=== PATIENT | female | born 1945 | race Hispanic/Latino ===

== ENCOUNTER → 2018-11-11 | Day surgery (SDC) | payer MEDICARE ==
[2018-11-09 11:30] LABS: BASOPHILS % 0.4 % (0.0-1.0); EOSINOPHILS # (AUTO) 0.4 (0.0-0.4); EOSINOPHILS % 4.5 % (0.0-6.0); HEMOGLOBIN 13.9 g/dL (12.0-16.0); LYMPHOCYTES # (AUTO) 1.7 (1.0-3.2); LYMPHOCYTES % 21.2 % (18.0-39.1); MEAN CORPUSCULAR HEMOGLOBIN 28.1 pg (28-32); MEAN CORPUSCULAR HGB CONC 33.1 g/dL (31-35); MEAN CORPUSCULAR VOLUME 84.8 fL (81-99); MONOCYTES # (AUTO) 0.5 (0.2-0.8); MONOCYTES % 6.9 % (4.4-11.3); NEUTROPHILS # (AUTO) 5.2 (2.1-6.9); NEUTROPHILS % 66.5 % (38.7-80.0); RED BLOOD COUNT 4.95 x10e6/uL (3.6-5.1); RED CELL DISTRIBUTION WIDTH 13.5 % (11.7-14.4)
[2018-11-09 11:32] LABS: PLATELET COUNT 134 x10e3/uL (140-360)
[2018-11-09 11:39] LABS: INR 0.87; PROTHROMBIN TIME 12.3 seconds (11.9-14.5)
[2018-11-09 11:49] LABS: ALANINE AMINOTRANSFERASE 12 IU/L (0-55); ALBUMIN 3.6 g/dL (3.5-5.0); ALBUMIN/GLOBULIN RATIO 0.9 (0.8-2.0); ALKALINE PHOSPHATASE 104 IU/L (40-150); ANION GAP 12.9 mmol/L (8-16); BLOOD UREA NITROGEN 14 mg/dL (7-26); BUN/CREATININE RATIO 17 (6-25); CALCIUM 10.3 mg/dL (8.4-10.2); CARBON DIOXIDE 27 mmol/L (22-29); CHLORIDE 104 mmol/L (98-107); CREATININE, SERUM 0.82 mg/dL (0.57-1.11); EST GLOMERULAR FILTRATION RATE > 60 ML/MIN (60-); GLUCOSE 127 mg/dL (74-118); POTASSIUM 4.9 mmol/L (3.5-5.1); SODIUM 139 mmol/L (136-145)
[~2018-11-11] VITALS: Ht 154.9 cm; Wt 86.2 kg
[2018-11-11] VITALS (12 sets, daily range): BP systolic 122–167; BP diastolic 60–88
[~2018-11-11] MED LIST: ASPIRIN81 MG PO; FENTANYL CITRATE/PF 100MCG/2 ML INJ ONE; HEPARIN SOD (PORCINE) 1000 UNIT/ML 30ML ONE; HEPARIN SOD/SOD CHLORIDE 2,000 ML ONE; IOPAMIDOL 370 MG/ML 200 ML INFUS..BTL INJ ONE; LIDOCAINE HCL 2% LOCAL 20 ML VIAL ONE; LISINOPRIL-HCT1 EACH PO; METFORMIN HCL500 MG PO; MIDAZOLAM HCL 2 MG/2 ML VIAL ONE; NAPROXEN250 MG PO; NITROGLYCERIN/D5W 200 MCG/ML 250 ML ONE; SODIUM CHLORIDE 0.9% 1000ML 1,000 ML ONE; ULTRACET TABLE1 EACH PO; VERAPAMIL HCL 2.5 MG/ML 2 ML VIAL ONE
--- OUTSIDE RECORDS SUMMARY | 2018-11-11 07:07 | XMS REPORT ---
Author Author [facility] Address Unknown Phone Unavailable Care Team Providers Care Asthma Educator Name Role Phone Unavailable Unavailable Problems This patient has no known problems. Allergies, Adverse Reactions, Alerts This patient has no known allergies or adverse reactions. Medications This patient has no known medications. Results Test Description Test Time Test Comments Text Results Atomic Results Result Comments SCR MAMM BILATERAL PRITESH CAD DIGITAL 2018-05-28 09:48:41 - SCR MAMM BILATERAL PRITESH CAD DIGITALBILATERAL DIGITAL SCREENING MAMMOGRAM 3D/2D WITH CAD: 05/28/2018CLINICAL: Asymptomatic. Digital breast tomosynthesis was performed in addition to routine CC and MLO views. Current mammographic images were evaluated by either a [place] M-Vu or a [employer] ImageChecker CAD (computer aided detection system). Comparison is made to exams dated 10/08/2016 mammogram, 10/04 mammogram, and 07/21/2014 mammogram - [facility]. There are scattered fibroglandular tissues in both breasts. There are benign appearing calcifications in both breasts which appear mammographically stable since 2016. No new suspicious mass, architectural distortion, malignant type calcification, or lymph node abnormality detected. IMPRESSION: BENIGNThere is no mammographic evidence of malignancy. Resume annual screening mammography in one year. Miley Brink M.D. ar/:05/28/2018 09:48:41 copy to: [facility], [facility], ph: [phone], fax: [phone] Technologist: Valarie HOLM, [facility] sent: BIRADS 1-2 Normal Mammogram BI-RADS: 2 Benign
--- NOTE | 2018-11-11 08:51 | NUR ---
0851am Received pt in Rm #9 Identiferx2 Handoff [facility] no Fix Dr Staples Rt TR band approach. No oozing or hematoma. No gross issues pain pallor pressure or dysrhythmia. Back to baseline orientation. Respiration shallow and regular. 98% RA Abdomen soft and nontender. Denies to defecate or urinate. Bilateral PPx4 PD/PT. Left iv infusing at kvo. No s/s infiltration. Reviewed dc planning with has copies of dc plans. 9:30am 12cc TR band -2cc had to return due to oozing, will reattempt at 10:00am 12cc in balloon volume No hematoma No gross issues pain pallor pressure or dysrhythmia.Normal neuro vascular function. ds/rn
--- NOTE | 2018-11-11 10:15 | NUR ---
1015am resume air removal to 12cc balloon, -2cc positive 10cc Normal neuro vascular function intact.No gross issues pain pallor pressure or dysrhythmia. remain at bedside ds/rn
--- NOTE | 2018-11-11 10:15 | NUR ---
1015a Resume air removal TR band No hematoma or oozing -2cc Positive 10cc.Normal Neurovascular Function 1030a -2cc positive 8cc .Normal Neurovascular function 1045a -2cc Positive 6cc, Normal Neuro vascular function 1100am completed air removal Sterile 2x2 with Tegaderm.with Coban and Wrist splint No gross issues pain pallor pressure or dysthrhmia. Normal neuro vascular function. Assist to bathroom voided , intaking food and fluids well, Denies c/o CP or SOB ,iv removed with copies POC .2x2 dressing to left iv site, no s/s infiltration. Escorted to car with w/c and RN escort aware of importance of f/o, is driving. ds/rn
--- NOTE | 2018-11-11 17:49 | Operative Report ---
DATE OF PROCEDURE: 11/11/2018 SURGEON: Miguel Staples DO PROCEDURES PERFORMED: 1. Conscious sedation, 26 minutes. 2. Selective coronary angiography x2. 3. Left heart catheterization. PREPROCEDURE DIAGNOSIS: Abnormal stress test. POSTPROCEDURE DIAGNOSIS: Abnormal stress test. ESTIMATED BLOOD LOSS: Less than 20 mL. SPECIMENS REMOVED: None. PROCEDURE IN DETAIL: After informed consent was obtained, the patient was brought to the cardiac catheterization laboratory in the fasting, nonsedated state. Her right wrist was prepped and draped in the usual sterile fashion. A 2% lidocaine was infiltrated over the right wrist for local anesthesia. Using a micropuncture needle, the right radial artery was accessed via modified Seldinger technique and a 5/6 slender sheath was placed. Next, diagnostic coronary angiography was performed using a TIG catheter. Diagnostic imaging revealed no significant coronary artery disease with patent vessels. Left heart catheterization showed end-diastolic pressure of 15 mmHg. The patient tolerated procedure well with no immediate complications and transported back to her room in stable condition. PROCEDURE FINDINGS: 1. Left main coronary artery is patent. 2. Left anterior descending coronary artery is patent with mild luminal irregularities. 3. Left circumflex coronary artery provides two obtuse marginal vessels with no significant disease. 4. Right coronary artery is a dominant vessel and provides the posterior descending coronary artery. Miguel Staples DO BM/MODL /[id number]
== END | disposition home or self-care (01) ==
LOC: CATH LAB 07:04
PROVIDERS: ATTEND Internal Medicine Cardiovascular Disease
DX: R07.2 Precordial pain (principal); R94.39 Abnormal result of other cardiovascular function study; Z01.812 Encounter for preprocedural laboratory examination; I10 Essential (primary) hypertension; E11.9 Type 2 diabetes mellitus without complications; Z79.84 Long term (current) use of oral hypoglycemic drugs; Z79.82 Long term (current) use of aspirin
CPT/HCPCS: 36415; 80053; 85025; 85610; 93458; C1887; J1644; J2001; J2250; J7030; Q9967; J3010

== ENCOUNTER 2018-11-30 10:41 | Inpatient (IN) | payer MEDICARE, OTHER ==
[~2018-11-30] VITALS: Ht 154.9 cm; Wt 86.6 kg
[~2018-11-30 10:41] MED LIST changes: -FENTANYL CITRATE/PF 100MCG/2 ML INJ ONE; -HEPARIN SOD (PORCINE) 1000 UNIT/ML 30ML ONE; -HEPARIN SOD/SOD CHLORIDE 2,000 ML ONE; -IOPAMIDOL 370 MG/ML 200 ML INFUS..BTL INJ ONE; -LIDOCAINE HCL 2% LOCAL 20 ML VIAL ONE; -MIDAZOLAM HCL 2 MG/2 ML VIAL ONE; -NITROGLYCERIN/D5W 200 MCG/ML 250 ML ONE; -SODIUM CHLORIDE 0.9% 1000ML 1,000 ML ONE; -VERAPAMIL HCL 2.5 MG/ML 2 ML VIAL ONE
[2018-11-30] MEDS ORDERED: SODIUM CHLORIDE 0.9% 500ML 500 ML IV ONE (11:00)
[2018-11-30] MEDS ORDERED: PANTOPRAZOLE 40 MG 10ML VIAL IV ONE (11:30)
[2018-11-30] MEDS ORDERED: ONDANSETRON HCL INJ 2MG/ML 2ML 2 MG/ML VIAL IV ONE (11:30)
[2018-11-30 11:43] LABS: BASOPHILS % 0.3 % (0.0-1.0); EOSINOPHILS # (AUTO) 0.1 (0.0-0.4); EOSINOPHILS % 0.9 % (0.0-6.0); HEMATOCRIT 44.5 % (34.2-44.1); HEMOGLOBIN 15.1 g/dL (12.0-16.0); LYMPHOCYTES # (AUTO) 0.9 (1.0-3.2); LYMPHOCYTES % 10.3 % (18.0-39.1); MEAN CORPUSCULAR HEMOGLOBIN 28.4 pg (28-32); MEAN CORPUSCULAR HGB CONC 33.9 g/dL (31-35); MEAN CORPUSCULAR VOLUME 83.8 fL (81-99); MONOCYTES # (AUTO) 0.5 (0.2-0.8); MONOCYTES % 5.5 % (4.4-11.3); NEUTROPHILS # (AUTO) 7.3 (2.1-6.9); NEUTROPHILS % 82.7 % (38.7-80.0); PLATELET COUNT 128 x10e3/uL (140-360); RED BLOOD COUNT 5.31 x10e6/uL (3.6-5.1); RED CELL DISTRIBUTION WIDTH 13.5 % (11.7-14.4)
[2018-11-30 11:55] LABS: INR 0.91; PROTHROMBIN TIME 12.7 seconds (11.9-14.5)
[2018-11-30 11:56] LABS: PARTIAL THROMBOPLASTIN TIME 29.2 seconds (23.8-35.5)
[2018-11-30 12:04] LABS: ALANINE AMINOTRANSFERASE 12 IU/L (0-55); ALBUMIN 3.7 g/dL (3.5-5.0); ALBUMIN/GLOBULIN RATIO 0.9 (0.8-2.0); ALKALINE PHOSPHATASE 100 IU/L (40-150); AMYLASE 52 U/L (25-125); ANION GAP 15.1 mmol/L (8-16); BLOOD UREA NITROGEN 15 mg/dL (7-26); BUN/CREATININE RATIO 17 (6-25); CALCIUM 9.9 mg/dL (8.4-10.2); CARBON DIOXIDE 24 mmol/L (22-29); CHLORIDE 105 mmol/L (98-107); CREATINE KINASE 22 IU/L (29-168); CREATININE, SERUM 0.86 mg/dL (0.57-1.11); EST GLOMERULAR FILTRATION RATE > 60 ML/MIN (60-); GLUCOSE 153 mg/dL (74-118); LIPASE 23 U/L (8-78); MAGNESIUM 1.9 MG/DL (1.3-2.1); POTASSIUM 4.1 mmol/L (3.5-5.1); SODIUM 140 mmol/L (136-145)
--- NOTE | 2018-11-30 12:27 | Diagnostic Imaging Report ---
EXAMINATION: ABDOMEN ACUTE SERIES W/PA CXR INDICATION: Abdominal pain COMPARISON: None FINDINGS: TUBES and LINES: EKG leads overlie the chest. LUNGS: The lung volumes are normal. No focal consolidation or pulmonary edema. PLEURA: No pleural effusion or pneumothorax. HEART AND MEDIASTINUM: The cardiomediastinal silhouette is normal in size and contour. Linear calcification along the right heart border may be pleural or pericardial in origin. BONES AND SOFT TISSUES: No acute fracture or dislocation. ABDOMEN: Nonobstructive bowel gas pattern. No free air. A 9 mm vague calcific density overlying the left kidney may represent renal calculus versus ingested material. No acute fracture or dislocation. IMPRESSION: Nonobstructive bowel gas pattern. No free air. 9 mm calcific density overlying the left kidney may represent renal calculus or ingested material. Clear lungs. Signed by: Deepa Juarez MD on 11/30/2018 12:24 PM
--- NOTE | 2018-11-30 13:00 | NUR ---
REC'D REPORT IN WALKING ROUNDS WITH MEGHA CATALAN FOR CONTINUITY OF CARE
[2018-11-30] MEDS ORDERED: IOPAMIDOL 370 MG/ML 200 ML INFUS..BTL INJ ONE (14:41)
[2018-11-30] MEDS ORDERED: SODIUM CHLORIDE 0.9% 50ML 50 ML ONE (14:41)
--- NOTE | 2018-11-30 14:41 | Diagnostic Imaging Report ---
EXAM: CT Abdomen and Pelvis WITH intravenous contrast INDICATION: Abdominal pain COMPARISON: None. TECHNIQUE: Abdomen and pelvis were scanned utilizing a multidetector helical scanner from the lung base to the pubic symphysis after administration of IV contrast. Coronal and sagittal reformations were obtained. Routine protocol was performed. Scan was performed when during portal venous phase. IV CONTRAST: 100mL of Isovue 370 ORAL CONTRAST: Water COMPLICATIONS: None RADIATION DOSE: Total DLP: 476.7 mGy*cm Dose modulation, iterative reconstruction, and/or weight based adjustment of the mA/kV was utilized to reduce the radiation dose to as low as reasonably achievable. FINDINGS: LOWER THORAX: Mild diffuse groundglass opacities and peripheral interlobular septal thickening compatible with mild interstitial pulmonary edema. Pericardial calcifications and atherosclerotic calcifications of the coronary arteries. HEPATOBILIARY: Diffusely decreased hepatic parenchymal attenuation. No focal hepatic lesions. No biliary ductal dilatation. Status post cholecystectomy SPLEEN: No splenomegaly. PANCREAS: Scattered fatty atrophy. No focal mass. No ductal dilatation. ADRENALS: Right adrenal thickening without discrete mass lesion. No left adrenal nodule. KIDNEYS/URETERS: Severe right hydronephrosis with loss of renal parenchyma and cortical thinning, likely indicating chronicity. Minimal left hydronephrosis. No renal calculi or solid mass lesions. 2.4 cm left renal mid pole posterior cyst. PELVIC ORGANS/BLADDER: Unremarkable. PERITONEUM / RETROPERITONEUM: No free air or fluid. LYMPH NODES: No lymphadenopathy. VESSELS: Mild scattered atherosclerotic calcifications of the abdominal aorta and major branches. GI TRACT: A loop of dilated small bowel in the pelvis (series 2 image 64) without focal wall thickening. Normal appearing appendix. BONES AND SOFT TISSUES: No acute osseous injury. Mild degenerative changes of the visualized spine. IMPRESSION: Severe chronic right hydronephrosis with loss of renal parenchyma and cortical thinning. Minimal left hydronephrosis. No renal calculi or solid mass lesions. Loop of dilated small bowel in the pelvis measuring up to 3.8 cm without obvious underlying mechanical source of obstruction may represent ileus. Hepatic steatosis. Mild interstitial pulmonary edema. Signed by: Deepa Juarez MD on 11/30/2018 2:38 PM
--- NOTE | 2018-11-30 14:41 | NUR ---
URINE COLLECTED AND SENT OFF TO THE LAB
[2018-11-30] MEDS ORDERED: MORPHINE SULFATE 2 MG/ML SYR 1ML IV STA (14:42)
[2018-11-30] MEDS ORDERED: ONDANSETRON HCL INJ 2MG/ML 2ML 2 MG/ML VIAL IV STA (14:42)
[2018-11-30] MEDS ORDERED: MORPHINE SULFATE INJ 4 MG/ML INJ 1ML IV ONE (15:00)
[2018-11-30] MEDS ORDERED: BENZOCAINE/TETRACAINE/BUTAMBEN AERO SPRAY 56 GM CAN TOP ONE (16:00)
[2018-11-30 16:12] LABS: BILIRUBIN,URINE NEGATIVE (NEGATIVE); CLARITY,URINE CLEAR (CLEAR); COLOR,URINE YELLOW (YELLOW); KETONES,URINE NEGATIVE (NEGATIVE); LEUKOCYTE ESTERASE ,URINE NEGATIVE (NEGATIVE); NITRITE,URINE NEGATIVE (NEGATIVE); PROTEIN,URINE DIPSTICK NEGATIVE (NEGATIVE); URINE UROBILINOGEN 0.2 mg/dL (0.2 - 1)
[2018-11-30 16:15] LABS: BACTERIA,URINE FEW /HPF; EPITHELIAL CELLS,URINE FEW /LPF; RBC,URINE 0-5 /HPF (0-5); WBC,URINE (MAN) 0-5 /HPF (0-5)
[2018-11-30] MEDS: SODIUM CHLORIDE 0.9% 1000ML 1,000 ML IV SCH (16:33)
--- NOTE | 2018-11-30 16:35 | NUR ---
16fr ngt placed and pt tolerated well.
[2018-11-30] MEDS ORDERED: MORPHINE SULFATE INJ 4 MG/ML INJ 1ML IV PRN (16:45)
[2018-11-30] MEDS ORDERED: DEXTROSE 50% SYRINGE 50 ML IV PRN (16:45)
[2018-11-30] MEDS ORDERED: ONDANSETRON HCL INJ 2MG/ML 2ML 2 MG/ML VIAL IV PRN (16:45)
--- NOTE | 2018-11-30 17:02 | NUR ---
bed control called re placement for this pt.; spoke to gabrielle
--- NOTE | 2018-11-30 17:29 | NUR ---
REPORT CALLED TO MEGHA FRAZIER FOR THIS PT TO GO TO [id number]
[2018-11-30 18:05] VITALS: BP 123/82
[2018-11-30 18:13] VITALS: BP 123/82
[2018-11-30 18:16] VITALS: BP 123/82
[2018-11-30] MEDS: INSULIN LISPRO 100 UNIT/1 ML 3ML VIAL SQ SCH (19:59)
[2018-11-30 20:00] VITALS: BP 139/79
[2018-11-30 21:55] LABS: CREATINE KINASE MB 0.5 ng/mL (0-5.0)
[2018-12-01] VITALS (8 sets, daily range): BP systolic 105–142; BP diastolic 61–67
[2018-12-01 06:08] LABS: BASOPHILS % 0.6 % (0.0-1.0); EOSINOPHILS # (AUTO) 0.3 (0.0-0.4); EOSINOPHILS % 3.9 % (0.0-6.0); HEMATOCRIT 38.4 % (34.2-44.1); HEMOGLOBIN 12.9 g/dL (12.0-16.0); LYMPHOCYTES # (AUTO) 1.5 (1.0-3.2); LYMPHOCYTES % 21.7 % (18.0-39.1); MEAN CORPUSCULAR HEMOGLOBIN 28.4 pg (28-32); MEAN CORPUSCULAR HGB CONC 33.6 g/dL (31-35); MEAN CORPUSCULAR VOLUME 84.6 fL (81-99); MONOCYTES # (AUTO) 0.6 (0.2-0.8); MONOCYTES % 8.7 % (4.4-11.3); NEUTROPHILS # (AUTO) 4.3 (2.1-6.9); NEUTROPHILS % 64.7 % (38.7-80.0); PLATELET COUNT 112 x10e3/uL (140-360); RED BLOOD COUNT 4.54 x10e6/uL (3.6-5.1); RED CELL DISTRIBUTION WIDTH 13.8 % (11.7-14.4)
--- NOTE | 2018-12-01 06:25 | NUR ---
NG tube removed at this time without complications.
[2018-12-01 06:32] LABS: CREATINE KINASE MB 0.5 ng/mL (0-5.0)
[2018-12-01 06:39] LABS: ALANINE AMINOTRANSFERASE 9 IU/L (0-55); ALBUMIN 2.9 g/dL (3.5-5.0); ALBUMIN/GLOBULIN RATIO 0.9 (0.8-2.0); ALKALINE PHOSPHATASE 79 IU/L (40-150); ANION GAP 9.8 mmol/L (8-16); BLOOD UREA NITROGEN 13 mg/dL (7-26); BUN/CREATININE RATIO 17 (6-25); CALCIUM 8.8 mg/dL (8.4-10.2); CARBON DIOXIDE 25 mmol/L (22-29); CHLORIDE 108 mmol/L (98-107); CREATININE, SERUM 0.77 mg/dL (0.57-1.11); EST GLOMERULAR FILTRATION RATE > 60 ML/MIN (60-); GLUCOSE 128 mg/dL (74-118); POTASSIUM 3.8 mmol/L (3.5-5.1); SODIUM 139 mmol/L (136-145)
--- NOTE | 2018-12-01 06:44 | Consultation ---
DATE OF CONSULTATION: 12/01/2018 HISTORY OF PRESENT ILLNESS: The patient is a 73-year-old female, who came into the emergency room with complaints of abdominal pain. Says the pain was epigastric. She had associated nausea, vomited one time. The patient says her pain has gone completely now. Yesterday, she has had a CT of the abdomen and pelvis, which revealed one area of dilated small bowel suggestive of possible partial small-bowel obstruction, but she says she is now passing flatus and her pain has gone. She denies more nausea or vomiting. NG tube had been placed in the ER and there has been drainage of only about 100 mL, since it was placed of clear bilious fluid. The patient has had previous abdominal surgery, which include section and open cholecystectomy. PAST MEDICAL HISTORY: Significant for hypertension, diabetes, previous urinary tract infections with chronic right hydronephrosis, history of gastroesophageal reflux disease, and hyperlipidemia. MEDICATIONS: At home were aspirin, lisinopril, metformin, naproxen, and tramadol as needed. ALLERGIES: SHE HAS NO KNOWN ALLERGIES. FAMILY HISTORY: Noncontributory. SOCIAL HISTORY: The patient does not smoke cigarettes or drink alcohol. REVIEW OF SYSTEMS: As stated above. She has had no fever, no weight loss. PHYSICAL EXAMINATION: GENERAL: The patient is awake and alert, in no distress. VITAL SIGNS: Normal. She is not tachycardic. HEENT: Sclerae are not icteric. Pupils are equal, round, and reactive to light. NECK: Has no mass. LUNGS: Equal breath sounds are clear bilaterally. CARDIAC: Regular rate and rhythm with no murmur. ABDOMEN: Healed right subcostal wound. Soft. There is no distention. No tenderness. No mass. No organomegaly. EXTREMITIES: Have no edema. NEUROLOGIC: Grossly intact. LABORATORY TESTS: Chemistries were essentially normal. Urinalysis also essentially normal. CBC, white blood cell count is 8.9 with slight left shift differential. Hemoglobin and hematocrit are normal. ASSESSMENT: A 73-year-old female, who appears to have had an ileus, possibly acute gastroenteritis. There are no signs at this time of obstruction. She says she is passing flatus. I think the NG tube can safely be removed. PLAN: To start her on clear liquid diet. There is no signs of acute surgical abdomen that require immediate surgical intervention. Thank you for asking me to see Ms. Shannon. MD YANI Monaco/AGUSTIN /[id number]
--- NOTE | 2018-12-01 06:47 | NUR ---
Report given to MEGHA Gastelum at this time.
[2018-12-01] MEDS: SODIUM CHLORIDE 0.9% 1000ML 1,000 ML IV SCH (07:35)
[2018-12-01] MEDS: INSULIN LISPRO 100 UNIT/1 ML 3ML VIAL SQ SCH ×4 (08:06→20:59)
[2018-12-01] MEDS ORDERED: TRAMADOL/APAP 37.5MG-325MG TAB PO PRN (10:00)
--- NOTE | 2018-12-01 10:36 | History and Physical ---
PRIMARY CARE PHYSICIAN: Dr. Justyn Jennings. CONSULTANTS: 1. Dr. Juan Carlos Holland. 2. Dr. Bon Rinaldi. CHIEF COMPLAINT: Abdominal pain, nausea, and vomiting. HISTORY: A 73-year-old female with multiple abdominal surgery, previously , partial colon resection many years ago for colon cancer and cholecystectomy, came in with abdominal pain associated with nausea and vomiting. The patient has a CT scan of the abdomen and pelvis, found that the patient may have a partial small bowel obstruction and also on that the patient also has finding of severe chronic right hydronephrosis with loss of renal parenchyma and cortical thinning. Minimal left hydronephrosis. No renal calculi or solid mass lesion noticed. A small loop of dilated bowel measuring 3.8 cm without obvious underlying mechanical sources. The patient is stable. She has been seen by Dr. Bon Rinaldi and so far the patient would not need any surgical intervention. The patient was seen by Dr. Juan Carlos Holland, plan is not finalized as of yet. PAST MEDICAL HISTORY: Significant for hypertension, diabetes type 2, recurrent urinary tract infection with chronic right hydronephrosis, history of reflux, dyslipidemia, obesity. PAST SURGICAL HISTORY: Partial colon resection many years ago for colon cancer, cholecystectomy, . SOCIAL HISTORY: The patient does not smoke or use alcohol. No recreational drug use. ALLERGIES: NO KNOWN ALLERGIES. HOME MEDICATIONS: List is reviewed. REVIEW OF SYSTEMS: Nausea and vomiting resolving. The abdominal pain much improved. PHYSICAL EXAMINATION: VITAL SIGNS: Temperature is 98, blood pressure 119/67, pulse rate 59, respirations 18. GENERAL: The patient is not in acute distress. She is awake. HEENT: Normocephalic, atraumatic. Pupils reactive. Anicteric. NECK: Supple grossly. PULMONARY: Diminished breath sounds without any wheezing or rales. CARDIOVASCULAR: Regular rate and rhythm. ABDOMEN: Morbidly obese. Positive bowel sounds. Nondistention, nontender. EXTREMITIES: No cyanosis or edema. NEUROLOGIC: No gross focal deficit. LABORATORY DATA: WBC is 6.7, hemoglobin 12.9, hematocrit is 38.4, platelets is 112. Chemistry; sodium is 139, potassium 3.8, chloride 108, bicarb 25, BUN 13, creatinine 0.7, glucose 128. Urinalysis is negative. Coagulation is unremarkable. IMAGING TESTS: As mentioned above. IMPRESSION: 1. Severe chronic right hydronephrosis as mentioned above. 2. Early small bowel obstruction/ileus. PLAN: Continue with current management. Consultation with Dr. Juan Carlos Holland. We will discuss with Dr. Holland on management. We will follow up on the patient's status. Resume home medication at this time. MD ANDRES Guerrero/AGUSTIN /[id number]
[2018-12-01] MEDS: PANTOPRAZOLE SOD 40 MG TABEC PO SCH (11:18)
[2018-12-02 04:00] VITALS: BP 118/64
[2018-12-02 05:54] LABS: BASOPHILS % 0.3 % (0.0-1.0); EOSINOPHILS # (AUTO) 0.3 (0.0-0.4); EOSINOPHILS % 4.8 % (0.0-6.0); HEMOGLOBIN 12.8 g/dL (12.0-16.0); LYMPHOCYTES # (AUTO) 1.6 (1.0-3.2); LYMPHOCYTES % 23.1 % (18.0-39.1); MEAN CORPUSCULAR HEMOGLOBIN 28.9 pg (28-32); MEAN CORPUSCULAR HGB CONC 33.7 g/dL (31-35); MEAN CORPUSCULAR VOLUME 85.8 fL (81-99); MONOCYTES # (AUTO) 0.7 (0.2-0.8); MONOCYTES % 9.8 % (4.4-11.3); NEUTROPHILS # (AUTO) 4.2 (2.1-6.9); NEUTROPHILS % 61.6 % (38.7-80.0); PLATELET COUNT 109 x10e3/uL (140-360); RED BLOOD COUNT 4.43 x10e6/uL (3.6-5.1); RED CELL DISTRIBUTION WIDTH 13.5 % (11.7-14.4)
[2018-12-02 06:15] LABS: ANION GAP 11.2 mmol/L (8-16); BLOOD UREA NITROGEN 10 mg/dL (7-26); BUN/CREATININE RATIO 13 (6-25); CALCIUM 9.2 mg/dL (8.4-10.2); CARBON DIOXIDE 26 mmol/L (22-29); CHLORIDE 108 mmol/L (98-107); CREATININE, SERUM 0.78 mg/dL (0.57-1.11); EST GLOMERULAR FILTRATION RATE > 60 ML/MIN (60-); GLUCOSE 122 mg/dL (74-118); POTASSIUM 4.2 mmol/L (3.5-5.1); SODIUM 141 mmol/L (136-145)
--- NOTE | 2018-12-02 07:00 | NUR ---
bedside shift report received by night rn, pt in stable condition, r ac 20g no ss of infiltration noted, denies pain at this time, call light in reach will continue to monitor
--- NOTE | 2018-12-02 07:09 | NUR ---
Report given to MEGHA Galan at this time.
[2018-12-02] MEDS: INSULIN LISPRO 100 UNIT/1 ML 3ML VIAL SQ SCH ×2 (07:30→11:30)
[2018-12-02 08:07] VITALS: BP 112/59
[2018-12-02] MEDS ORDERED: ONDANSETRON HCL 4 MG ORAL DISINTEGRATING TAB PO PRN (08:45)
[2018-12-02] MEDS: PANTOPRAZOLE SOD 40 MG TABEC PO SCH (09:19)
[2018-12-02 09:20] VITALS: BP 112/59
[2018-12-02 11:52] VITALS: BP 119/71
--- NOTE | 2018-12-02 12:22 | Consultation ---
DATE OF CONSULTATION: 11/30/2018 Urologic Consultation Consultation is called by Dr. Bowden. CHIEF COMPLAINT/REASON FOR CONSULTATION: Hydronephrosis. HISTORY OF PRESENT ILLNESS: Ms. Shannon is a 73-year-old female patient admitted to the hospital with abdominal pain. Denied dysuria. Denied gross hematuria. PAST MEDICAL HISTORY: Hypertension. MEDICATIONS: Please see MAR. ALLERGIES: NKDA. SOCIAL HISTORY: Denied smoking or drinking. FAMILY HISTORY: Denied urologic stones or malignancies. REVIEW OF SYSTEMS: Noncontributory other than problems mentioned above for 12 organ systems. PHYSICAL EXAMINATION: GENERAL: Elderly female, in no acute distress. VITAL SIGNS: Temperature 96.5, pulse 52, respirations 18, and blood pressure 119/66. HEENT: Sclerae anicteric. NECK: Supple. BACK: Without costovertebral angle tenderness bilaterally. ABDOMEN: Soft. It is nontender. It is nondistended. No palpable mass. No palpable hernias. No palpable adenopathy. : Normal female genitalia. EXTREMITIES: No edema. NEUROLOGIC: Moves all four extremities. PSYCH: Alert and appropriate. SKIN: Intact. Normal color. PERTINENT LABORATORY DATA: CT scan revealing pulmonary edema, right-sided severe hydronephrosis, minimal left hydronephrosis, a 2.4 cm left mid pole renal cyst. Hemoglobin 12, hematocrit 38, platelet count 112,000, and white blood cell count 6690. Sodium 139, potassium 3.8, chloride 108, bicarb 25, BUN 13, creatinine 0.77, and glucose 128. Urinalysis, 0-5 reds, 0-5 whites, trace blood. IMPRESSION: 1. Bilateral hydronephrosis, right greater than left. 2. Thrombocytopenia. 3. Renal cyst. 4. Renal atrophy. 5. Microscopic hematuria. PLAN: Defer heme and lytes to primary service. For the cyst, she will require surveillance. For the patient's hydronephrosis, consider nuclear medicine renal scan to determine if there is obstruction. Currently, the patient's renal function is preserved evidenced by the normal creatinine. We will consider stenting once urine culture is negative and the patient was stabilized. Thank you for allowing me to participate in the care of your patient. We will be happy to follow along with you. MD LAW Georges/RAMBOL /[id number] cc: Dr. Bowden
[2018-12-02 15:57] VITALS: BP 115/75
--- NOTE | 2018-12-03 03:56 | Discharge Summary ---
PRIMARY CARE PHYSICIAN: Justyn Jennings MD. CONSULTANTS: 1. Bon Rinaldi MD. 2. Juan Carlos Holland MD. FINAL DIAGNOSES: 1. Acute abdominal pain secondary to abdominal ileus versus early partial small bowel obstruction, resolved. 2. Incidental finding of severe chronic right hydronephrosis without renal failure or infection. SUMMARY: 73-year-old female came in with abdominal pain. CT scan showed loop of dilated small bowel in the pelvis, measuring up to 3.8 cm without obvious underlying and mechanical source of this obstruction may represent ileus. The patient has also incidental finding of severe chronic right hydronephrosis with loss of renal parenchyma and cortical thinning. Minimal left hydronephrosis. No renal calculi or solid mass lesion noted. The patient is stable. She is able to tolerate diet. No need for NG tube. The patient is comfortable at this time. She has been cleared by Dr. Rinaldi to go home. I spoke with Dr. Juan Carlos Holland. He recommended for the patient to follow up with him. He has cleared the patient for discharge home. The patient because of abnormal renal function, does not need any stent for test of renal nuclear scan inpatient at this time. The patient will do that as an outpatient and follow up with him in a week. The patient is otherwise stable. Resume home medication discharged home today and follow up on closely basis. Instructed the patient to follow up with Dr. Justyn Jennings to obtain a referral to see Dr. Juan Carlos Holland as because she is having Medicare replacement plan. MD ANDRES Guerrero/AGUSTIN /[id number]
== END 2018-12-02 17:29 | disposition home or self-care (01) | DRG 389 ==
LOC: ER 10:41 → ERHOLD 16:33 → MED/SURG 17:57
PROVIDERS: ADMIT Internal Medicine; ATTEND Internal Medicine
DX: K56.7 Ileus, unspecified (principal); N13.30 Unspecified hydronephrosis; D69.6 Thrombocytopenia, unspecified; N28.1 Cyst of kidney, acquired; N26.1 Atrophy of kidney (terminal); R31.29 Other microscopic hematuria; K52.9 Noninfective gastroenteritis and colitis, unspecified; K59.00 Constipation, unspecified; I10 Essential (primary) hypertension; E11.9 Type 2 diabetes mellitus without complications; Z87.440 Personal history of urinary (tract) infections; K21.9 Gastro-esophageal reflux disease without esophagitis; E78.5 Hyperlipidemia, unspecified; Z90.49 Acquired absence of other specified parts of digestive tract; Z82.49 Family history of ischemic heart disease and other diseases of the circulatory system; Z85.038 Personal history of other malignant neoplasm of large intestine; E66.9 Obesity, unspecified; Z79.82 Long term (current) use of aspirin; Z79.84 Long term (current) use of oral hypoglycemic drugs; Z68.36 Body mass index [BMI] 36.0-36.9, adult
CPT/HCPCS: 36415; 74022; 74177; 80048; 80053; 81001; 82150; 82550; 82553; 82948; 83690; 83735; 83880; 84484; 85025; 85610; 85730; 93005; 99284; J2270; J2405; J7030; J7040; Q9967

== ENCOUNTER → 2019-05-14 | Day surgery (SDC) | payer MEDICARE ==
[2019-05-13 12:09] LABS: BASOPHILS % 0.4 % (0.0-1.0); EOSINOPHILS # (AUTO) 0.3 (0.0-0.4); EOSINOPHILS % 3.9 % (0.0-6.0); HEMATOCRIT 38.5 % (34.2-44.1); HEMOGLOBIN 12.4 g/dL (12.0-16.0); LYMPHOCYTES # (AUTO) 1.3 (1.0-3.2); LYMPHOCYTES % 18.4 % (18.0-39.1); MEAN CORPUSCULAR HEMOGLOBIN 27.5 pg (28-32); MEAN CORPUSCULAR HGB CONC 32.2 g/dL (31-35); MEAN CORPUSCULAR VOLUME 85.4 fL (81-99); MONOCYTES # (AUTO) 0.5 (0.2-0.8); NEUTROPHILS # (AUTO) 5.1 (2.1-6.9); NEUTROPHILS % 69.9 % (38.7-80.0); PLATELET COUNT 132 x10e3/uL (140-360); RED BLOOD COUNT 4.51 x10e6/uL (3.6-5.1); RED CELL DISTRIBUTION WIDTH 13.3 % (11.7-14.4)
--- NOTE | 2019-05-13 12:18 | Diagnostic Imaging Report ---
EXAMINATION: CHEST 2 VIEWS INDICATION: Pre-operative COMPARISON: None FINDINGS: LINES/TUBES:None LUNGS:The lungs are well-inflated. No focal consolidation or pulmonary edema. PLEURA:No pleural effusion or pneumothorax. MEDIASTINUM:The cardiomediastinal silhouette appears normal in size and shape. BONES/SOFT TISSUES:No acute osseous injury. ABDOMEN:No free air under the diaphragm. IMPRESSION: No focal pneumonia or pulmonary edema. Signed by: Deepa Juarez MD on 05/13/2019 12:15 PM
[2019-05-13 12:24] LABS: BLOOD UREA NITROGEN 13 mg/dL (7-26); BUN/CREATININE RATIO 17 (6-25); CALCIUM 9.5 mg/dL (8.4-10.2); CARBON DIOXIDE 27 mmol/L (22-29); CHLORIDE 105 mmol/L (98-107); CREATININE, SERUM 0.77 mg/dL (0.57-1.11); EST GLOMERULAR FILTRATION RATE > 60 ML/MIN (60-); GLUCOSE 145 mg/dL (74-118); SODIUM 140 mmol/L (136-145)
[~2019-05-14] MED LIST changes: +ATORVASTATIN CA20 MG PO; +DEXAMETHASONE SOD PHOS INJ 4 MG/ML VIAL ONE; +EPHEDRINE SULFATE INJ 50 MG/ML VIAL ONE; +FENTANYL CITRATE/PF 100MCG/2 ML INJ ONE; +GENTAMICIN 80MG/NS 100 ML 100 ML IV ONE; +IOPAMIDOL 300MG/ML 50ML INFUS..BTL IV ONE; +LIDOCAINE HCL 2% LOCAL INJ 5 ML SDV VIAL INJ ONE; +MIDAZOLAM HCL 2 MG/2 ML VIAL ONE; +OMEPRAZOLE40 MG PO; +ONDANSETRON HCL INJ 2MG/ML 2ML 2 MG/ML VIAL ONE; +PROPOFOL IV EMULSION 10 MG/ML 20 ML VIAL ONE; +SERTRALINE HCL50 MG PO; +SEVOFLURANE INHAL SOLN 250 ML PEN BTL ONE
[2019-05-14 08:45] VITALS: BP 125/72
--- NOTE | 2019-06-03 20:07 | Operative Report ---
DATE OF PROCEDURE: 05/14/2019 SURGEON: Juan Carlos Holland MD PREOPERATIVE DIAGNOSES: Encrusted right ureteral stent, right mid ureteral stricture, right ureteral calculi. POSTOPERATIVE DIAGNOSES: Encrusted right ureteral stent, right mid ureteral stricture, right ureteral calculi. PROCEDURES: 1. Cystourethroscopy with complicated removal of right indwelling stent (entirely separate procedure complicated secondary to encrustation). 2. Right-sided ureteroscopy with stone extraction (entirely separate procedure for right ureteral calculi). 3. Supervision of fluoroscopy for both ureteroscopic and stent removal portion. 4. Supervision of fluoroscopy. ANESTHESIA: General. ESTIMATED BLOOD LOSS: Minimal. INDICATIONS: Ms. Shannon is a very pleasant 73-year-old female with a history of encrusted blown out right kidney and I had a long discussion about alternatives, risks, and benefits of doing nothing, stent removal, ureteroscopy, percutaneous surgery, open surgery. She voiced understanding the options of the alternatives, risks, and benefits, and elected to proceed. PROCEDURE IN DETAIL: After informed consent was obtained, the patient was taken to the operative suite, and placed supine on operating table. She underwent general anesthesia by Anesthesia Service. She was placed in dorsal lithotomy position, and sterilely prepped and draped for cystoscopy. A 21-Khmer cystoscope was inserted per urethra and normal urethra was noted. Panendoscopy of the bladder revealed no tumors, no stones. An encrusted right ureteral stent was seen extruding from the right ureteral orifice. A guidewire was inserted alongside the stent, and the stent was removed with moderate difficulty. The ureteroscope was advanced to proximal ureter and a retrograde pyelogram was performed through the ureteroscope, revealing a very dense mid ureteral stricture on the right side, multiple small ureteral calculi, which were basket extracted and passed off the table as specimen. At this time, no other stones noted and blown out right kidney, seen in the collecting system drained under fluoroscopy. The safety was removed. The bladder was drained. The patient was awakened from anesthesia and transferred to recovery room in excellent condition. No untoward effects noted. Supervision of fluoroscopy and interpretation of retrograde pyelography: I was present for the entire procedure and supervised fluoroscopy. There was no radiologist present. Attention was turned to the right ureter, it was catheterized. Retrograde pyelogram was performed, revealing a dilated chronically hydronephrotic right kidney and removal of right ureteral stent and calculi. MD LAW Georges/RAMBOL /[id number]
== END | disposition home or self-care (01) ==
LOC: OR 05:10
PROVIDERS: ATTEND Urology
DX: N13.2 Hydronephrosis with renal and ureteral calculous obstruction (principal); N13.5 Crossing vessel and stricture of ureter without hydronephrosis; N39.0 Urinary tract infection, site not specified; R35.1 Nocturia; Q62.11 Congenital occlusion of ureteropelvic junction; N28.1 Cyst of kidney, acquired; I10 Essential (primary) hypertension; E11.9 Type 2 diabetes mellitus without complications; Z01.810 Encounter for preprocedural cardiovascular examination; Z01.812 Encounter for preprocedural laboratory examination; Z46.6 Encounter for fitting and adjustment of urinary device; Z79.84 Long term (current) use of oral hypoglycemic drugs; Z68.33 Body mass index [BMI] 33.0-33.9, adult
CPT/HCPCS: 36415 ×2; 52352; 71046; 74420; 80048; 82948; 85025; 88300; 93005; C1788; J1100; J1580; J2001; J2250; J2405; J2704; J3010; Q9967; C1758

== ENCOUNTER → 2021-05-03 | Outpatient (CLI) | payer MEDICARE ==
[~2021-05-03] MED LIST changes: -DEXAMETHASONE SOD PHOS INJ 4 MG/ML VIAL ONE; -EPHEDRINE SULFATE INJ 50 MG/ML VIAL ONE; -FENTANYL CITRATE/PF 100MCG/2 ML INJ ONE; -GENTAMICIN 80MG/NS 100 ML 100 ML IV ONE; -IOPAMIDOL 300MG/ML 50ML INFUS..BTL IV ONE; -LIDOCAINE HCL 2% LOCAL INJ 5 ML SDV VIAL INJ ONE; -MIDAZOLAM HCL 2 MG/2 ML VIAL ONE; -ONDANSETRON HCL INJ 2MG/ML 2ML 2 MG/ML VIAL ONE; -PROPOFOL IV EMULSION 10 MG/ML 20 ML VIAL ONE; -SEVOFLURANE INHAL SOLN 250 ML PEN BTL ONE
== END ==
LOC: NM 08:10
PROVIDERS: ATTEND Urology
DX: T19.1XXD Foreign body in bladder, subsequent encounter (principal); N13.30 Unspecified hydronephrosis